=== PATIENT | female | born 1965 | race Two or more races ===

== ENCOUNTER 2019-05-16 09:13 | Emergency (ER) | payer BC ==
[~2019-05-16] VITALS: Ht 167.6 cm; Wt 77.1 kg
== END 2019-05-16 11:43 | disposition home or self-care (01) ==
LOC: ER 09:13
DX: R07.89 Other chest pain (principal)

== ENCOUNTER → 2024-09-18 | Emergency (ER) | payer OTHER ==
[~2024-09-18] VITALS: Ht 165.1 cm; Wt 79.4 kg
[~2024-09-18] MED LIST: CEPHALEXIN500 MG PO; DIPHTH,PERTUSS(ACELL),TET VAC 0.5 ML SYRINGE IM ONE; FLORAVANCE CAP1 EACH PO; FLUCONAZOLE150 MG PO; METFORMIN HCL500 M3; OZEMPIC0.25 MG/02 SQ; TETANUS & DIPHTHERIA TOX,ADULT 0.5 ML VIAL IM ONE
== END | disposition home or self-care (01) ==
LOC: ER 20:19
DX: S01.22XA Laceration with foreign body of nose, initial encounter (principal); W22.8XXA Striking against or struck by other objects, initial encounter; Y93.89 Activity, other specified; Y92.89 Other specified places as the place of occurrence of the external cause; Z88.6 Allergy status to analgesic agent

== ENCOUNTER → 2025-03-23 | Emergency (ER) | payer OTHER ==
[~2025-03-23] VITALS: Ht 165.1 cm; Wt 79.4 kg
[~2025-03-23] MED LIST changes: -DIPHTH,PERTUSS(ACELL),TET VAC 0.5 ML SYRINGE IM ONE; -TETANUS & DIPHTHERIA TOX,ADULT 0.5 ML VIAL IM ONE
== END | disposition left against medical advice (07) ==
LOC: ER 04:54
DX: Z53.21 Procedure and treatment not carried out due to patient leaving prior to being seen by health care provider (principal)